=== PATIENT | female | born 1980 | race Caucasian/White ===

== ENCOUNTER 2020-04-09 17:00 | Emergency (ER) | payer MEDICAID, SELFPAY ==
[2020-04-09 18:59] VITALS: BP 103/59; PULSE 79; RESP 16; TEMP 36.3; O2SAT 100; BMI 28.3
--- NOTE | 2020-04-09 19:13 | ED.GENADULT ---
HPI - General Adult General Chief complaint: General Medical <Frankie Rico NP - Last Filed: 04/09/20 19:29> Stated complaint: r side neck pain <Frankie Rico NP - Last Filed: 04/09/20 19:29> Time Seen by Provider: 04/09/20 19:13 <Frankie Rico NP - Last Filed: 04/09/20 19:29> Source: patient <Frankie Rico NP - Last Filed: 04/09/20 19:29> Mode of arrival: ambulatory <Frankie Rico NP - Last Filed: 04/09/20:29> Limitations: no limitations <Frankie Rico NP - Last Filed: 04/09/20 19:29> History of Present Illness HPI narrative: 40-year-old female with history of osteoarthritis, asthma, major depressive disorder, PTSD presenting ambulatory via triage with complaint of right-sided neck pain radiating to right shoulder for the past couple days. aggravating factors include movement and palpation Alleviating factors include rest She denies any fever or chills. No injury. She does report that she bought a new pillow and has been sleeping on that unsure if it is related. <Frankie Rico NP - Last Filed: 04/09/20 19:29> Onset (ago): day(s) <Frankie Rico NP - Last Filed: 04/09/20 19:29> Location: neck and right <Frankie Rico NP - Last Filed: 04/09/20 19:29> Severity: moderate <Frankie Rico NP - Last Filed: 04/09/20 19:29> Severity scale (1-10): 3 <Frankie Rico NP - Last Filed: 04/09/20 19:29> Relieving factors: none and immobilization <Frankie Rico NP - Last Filed: 04/09/20 19:29> Exacerbating factors: movement <Frankie Rico NP - Last Filed: 04/09/20 19:29> Associated symptoms: denies other symptoms <Frankie Rico NP - Last Filed: 04/09/20 19:29> Treatments prior to arrival: none <Frankie Rico NP - Last Filed: 04/09/20 19:29> Related Data Home medications: Previous Rx's Medication Instructions Recorded cyclobenzaprine 5 mg PO BID PRN #14 tab 04/09/20 ibuprofen 800 mg PO Q8H PRN #14 tab 04/09/20 <Frankie Rico NP - Last Filed: 04/09/20 19:29> Allergies/adverse reactions: Allergies Allergy/AdvReac Type Severity Reaction Status Date / Time penicillin V Allergy Unknown Unverified 04/04/19 00:00 Penicillins [PENICILLINS] Allergy Unknown UNKNOWN Unverified 03/20/20 19:40 <Frankie Rico NP - Last Filed: 04/09/20 19:29> Review of Systems Review of Systems: Constitutional: No Weight loss, No Fever, No Chills, No Night Sweats, No Fatigue, No Malaise ENT/Mouth: No Hearing loss, No Ear Pain, No Nasal Congestion, No Sinus Pain, No Hoarseness, No sore throat, No Rhinorrhea, No Swallowing Difficulty Eyes: No Eye Pain, No Swelling, No Redness, No Foreign Body, No Discharge, No Vision Changes Cardiovascular: No Chest Pain, No SOB, No Dyspnea on Exertion, No Orthopnea, No Edema, No Palpitations Respiratory: No Cough, No Sputum, No Wheezing, No Smoke Exposure, No Dyspnea Gastrointestinal: No Nausea, No Vomiting, No Diarrhea, No Constipation, No abdominal Pain, No Hematochezia, No Melena Genitourinary: no irregular bleeding, No Dysuria, No Urinary Frequency, No Hematuria, No Urinary Incontinence, No Urgency, No Flank Pain, No Urinary Flow Changes, No Hesitancy Musculoskeletal: No joint pain, No Myalgias, No Joint Swelling Skin: No Skin Lesions, No rash Neuro: No Weakness, No Numbness, No Paresthesias, No Loss of Consciousness, No Dizziness, No Headache Psych: No Anxiety/Panic, No Depression, No SI/HI/AH/VH, No Social Issues, Heme/Lymph: No Bruising, No Bleeding,No Lymphadenopathy Endocrine: No Polyuria, No Polydipsia, No Temperature Intolerance <XAVI Galeana Last Filed: 04/09/20 19:29> Yes all other systems are reviewed and are negative <XAVI Galeana Last Filed: 04/09/20 19:29> [facility] Past Medical History Attestation statement: The following information was validated with the patient. <Frankie Rico NP - Last Filed: 04/09/20 19:29> Medical History: Medical History (Updated 04/10/20 @ 00:00 by Dot Beverly) Asthma Depression Hypotension <Frankie Rico NP - Last Filed: 04/09/20 19:29> Surgical History: Surgical History (Updated 04/09/20 @ 19:04 by Nesha Pathak) Tubal ligation status <Frankie Rico NP - Last Filed: 04/09/20 19:29> Social History Social History: Social History Advance Directives: No Advance Directives Information Provided: Yes <Frankie Rico NP - Last Filed: 04/09/20 19:29> Physical Exam Vital Signs and I&O and Narrative: Vital Signs and I&O: Vital Signs Temp 97.4 F 04/09/20 18:59 Pulse 79 04/09/20 18:59 Resp 16 04/09/20 18:59 BP 103/59 L 04/09/20 18:59 Pulse Ox 100 04/09/20 18:59 Intake & Output 04/09/20 04/09/20 04/10/20 06:59 18:59 06:59 Weight 68.039 kg Body Mass Index 28.3 <Frankie Rico NP - Last Filed: 04/09/20 19:29> Vital Signs and I&O: Vital Signs Temp 97.4 F 04/09/20 18:59 Pulse 79 04/09/20 18:59 Resp 16 04/09/20 18:59 BP 103/59 L 04/09/20 18:59 Pulse Ox 100 04/09/20 18:59 Intake & Output 04/09/20 04/09/20 04/10/20 06:59 18:59 06:59 Weight 68.039 kg Body Mass Index 28.3 <Tay Bartlett DO - Last Filed: 04/10/20 02:39> Const: General: cooperative and healthy appearing; No acute distress or intoxicated appearing <Frankie Rico NP - Last Filed: 04/09/20 19:29> Nutritional Appearance: average body habitus <Frankie Rico NP - Last Filed: 04/09/20 19:29> Orientation/consciousness: patient oriented x3 <Frankie Rico, [facility] Last Filed: 04/09/20 19:29> HENMT: Head: Yes normal to inspection <[facility] Trisha [facility] Last Filed: 04/09/20 19:29> Ears: hearing grossly normal bilaterally [facility] Last Filed: 04/09/20 19:29> Eyes: General: appearance normal, both eyes and all related structures <[facility] Last Filed: 04/09/20 19:29> Visual Ferreira: normal visual ferreira by confrontation <[facility] Last Filed: 04/09/20:29> Neck: Other: Slight tender palpation over the right cervical spine paraspinal muscle. Negative Spurling test. <[facility] Last Filed: 04/09/20 19:29> Neck: Yes normal visual inspection, Yes full ROM, Yes no lymphadenopathy, No no meningeal signs, Yes trachea midline, Yes supple, No anterior neck swelling, No bilateral parotid enlargement, No lymphadenopathy, No midline deformity, No positive Brudzinski's sign, No positive Kernig's sign, No tender and No no JVD <[facility] Last Filed: 04/09/20 19:29> Thyroid: Thyroid normal <[facility] Last Filed: 04/09/20 19:29> Chest: Chest palpation & inspection: normal inspection of the chest <[facility] Last Filed: 04/09/20 19:29> Resp: Effort & Inspection: normal respiratory effort <[facility] Last Filed: 04/09/20 19:29> Cardio: Jugular venous distension: no JVD <[facility] Last Filed: 04/09/20 19:29> : General: Yes no CVA tenderness <[facility] Last Filed: 04/09/20 19:29> Back/Spine/Pelvis: Back: no CVA tenderness <[facility] Last Filed: 04/09/20 19:29> Skin: General skin exam: no rashes or lesions noted <[facility] Last Filed: 04/09/20 19:29> Neuro: General: patient oriented x3 and No no meningeal signs <Frankie Rico NP - Last Filed: 04/09/20 19:29> Extrem: General: Yes normal to inspection <Frankie Rico NP - Last Filed: 04/09/20 19:29> Medical Decision Making Differential Diagnosis Differential Diagnosis: torticollis, cervical strain, radiculopathy, fracture/ infectious less <Frankie Rico NP - Last Filed: 04/09/20 19:29> Discharge Plan Discharge Clinical Impression: Acute torticollis <Frankie Rico NP - Last Filed: 04/09/20 19:29> Patient Disposition: Home, Self-Care <Frankie Rico NP - Last Filed: 04/09/20 19:29> Instructions: Spasmodic Torticollis (ED) <Frankie Rico NP - Last Filed: 04/09/20 19:29> Additional Instructions: gentle stretching, warm compresses, supportive cares reviewed Take medication as prescribed Return if any concerns or worsening symptoms otherwise follow up as instructed Thank you <Frankie Rico NP - Last Filed: 04/09/20 19:29> Prescriptions: New cyclobenzaprine 5 mg tablet 5 mg PO BID PRN (Reason: muscle spasm) Qty: 14 RF: 0 ibuprofen 800 mg tablet 800 mg PO Q8H PRN (Reason: pain) Qty: 14 RF: 0 <Frankie Rico NP - Last Filed: 04/09/20 19:29> Interventions: ED Discharge Assessment Last Done: 04/09/20 19:56 <Frankie Rico NP - Last Filed: 04/09/20 19:29> Discharge Date/Time: 04/09/20 20:02 <Frankie Rico NP - Last Filed: 04/09/20 19:29>
== END 2020-04-09 20:02 | disposition home or self-care (01) ==
PROVIDERS: Emergency Provider Emergency Medicine; PCP Internal Medicine
DX: M43.6 Torticollis (principal)
CPT/HCPCS: 99283; 99284

== ENCOUNTER 2020-07-26 15:26 | Emergency (ER) | payer MEDICAID, SELFPAY ==
[2020-07-26 16:14] VITALS: BP 116/78; PULSE 107; RESP 18; TEMP 36.6; O2SAT 98; BMI 33.2
[2020-07-26 16:41] LABS: Glucose Urine UA NEG (NEG); Leukocyte Esterase Urine NEG (NEG); Nitrite Urine NEG (NEG); Urine Blood NEG (NEG); Urine Ketones NEG (NEG); Urine Protein NEG (NEG-TRACE)
[2020-07-26 16:43] LABS: Appearance Urine CLEAR; Color Urine YELLOW
[2020-07-26 16:44] LABS: UPreg QC Valid YES; Urine Pregnancy NEGATIVE (NEGATIVE)
--- NOTE | 2020-07-26 18:58 | CT_ITS ---
EXAMINATION: CT ABDOMEN AND PELVIS WITH CONTRAST CLINICAL INFORMATION: Right lower quadrant pain and tenderness COMPARISON: Pelvic ultrasound 11/12/2019, CT abdomen pelvis 09/16/2019 TECHNIQUE: Multidetector volumetric images were obtained from the superior aspect of the liver through the pubic symphysis following administration 85 mL of Omnipaque 350 intravenous contrast. Sagittal and coronal reformatted images were obtained on the technologist's workstation. Oral contrast: No This CT examination was performed using dose optimization techniques as appropriate, variously including the following: *Automated exposure control *Adjustment of mA and/or kV according to patient size (this includes techniques or standardized protocols for targeted exams where dose is matched to indication/reason for exam; i.e. extremities or head) *Use of iterative reconstruction technique DLP: 641 mGy-cm FINDINGS: LUNG BASES: The visualized lung bases are unremarkable. LIVER, GALLBLADDER, AND BILIARY TREE: The liver is normal in size, shape, and attenuation at least 2 calcified granulomas are present in the liver. No worrisome focal hepatic lesion or biliary ductal dilatation is present. The gallbladder is contracted but otherwise unremarkable with no evidence of radiopaque gallstones, gallbladder wall thickening, or obvious pericholecystic inflammatory changes. PANCREAS: Unremarkable. SPLEEN: Unremarkable. ADRENAL GLANDS: Unremarkable. KIDNEYS AND URETERS: The kidneys are normal in size, shape, and attenuation. Tiny hypodensity seen in the left kidney is a cystic lesion consistent with cyst, unchanged when compared to the 09/16/2019 CT. No hydronephrosis, hydroureter, or calculi seen. No perinephric stranding. BLADDER: Unremarkable. GASTROINTESTINAL TRACT: The small and large bowel are unremarkable. The appendix is unremarkable. ABDOMINAL WALL: No significant hernia is appreciated. LYMPH NODES: Normal. VASCULAR: Unremarkable. PELVIC VISCERA: The ovaries are midline behind the bladder. Cysts seen previously are not present. OSSEOUS STRUCTURES: There is mild biconvex scoliosis present. No bony destructive lesions. CT/CT abdomen pelvis w con IMPRESSION: No significant abnormality.
--- NOTE | 2020-07-26 19:00 | ED.GENADULT ---
HPI - General Adult General Chief complaint: Dizziness Stated complaint: nausea, dizziness Time Seen by Provider: 07/26/20 17:03 Source: patient Mode of arrival: ambulatory Limitations: language barrier (Patient speaks Slovak only, cementer oil well used to obtain information) History of Present Illness HPI narrative: 40-year-old female who presents emergency department for evaluation of abdominal pain, nausea and dizziness. Patient states that she developed gradual onset of right sided abdominal pain this morning that got progressively worse. She describes the pain as a constant, pulsing pain which waxes and wanes in intensity and is currently 8/10. She had associated nausea, loss of appetite but no vomiting. She denied frequency, urgency or dysuria. She states that this is her 1st episode of this type of pain. She did not take any medications at home for the pain. Her last menstrual period was May 2020 but she states that her menstrual periods are irregular and she does not believe that she is . She also states that she is feeling dizzy and lightheaded. Related Data Previous Rx's Medication Instructions Recorded cyclobenzaprine 5 mg PO BID PRN #14 tab 04/09/20 ibuprofen 800 mg PO Q8H PRN #14 tab 04/09/20 Allergies Allergy/AdvReac Type Severity Reaction Status Date / Time penicillin V Allergy Unknown Rash Verified 07/26/20 19:27 Penicillins [PENICILLINS] Allergy Unknown Itching Verified 07/26/20 19:27 Review of Systems Review of Systems: Yes all other systems are reviewed and are negative Neurologic: Reports Abnormal speech present [facility] Past Medical History [facility] Narrative: Patient has a history hypotension, asthma and depression. She denies alcohol and drug use. She does smoke cigarettes daily. Medical History (Updated 07/26/20 @ 21:57 by Yaya Gallardo MD) Asthma Depression Hypotension Surgical History (Updated 04/09/20 @ 19:04 by Nesha Pathak) Tubal ligation status Social History Social History Smoking Status: Current every day smoker Use of substances other than those prescribed or required for medical reasons: No Advance Directives: No Advance Directives Information Provided: Yes Physical Exam Vital Signs: Vital Signs: Last Vital Signs Temp 98.9 F 07/26/20 21:47 Pulse 88 07/26/20 21:47 Resp 18 07/26/20 21:47 BP 129/88 07/26/20 21:47 Pulse Ox 99 07/26/20 21:47 Body Mass Index 33.2 Const: General: cooperative and healthy appearing Orientation/consciousness: oriented to person and oriented to place Limitations: no limitations HENMT: Head: Yes normal to inspection, Yes normocephalic and Yes atraumatic Ears: external ears normal General nose exam: Normal external nose present Face and sinus: Yes normal facial exam Mouth: Normal oral and palatal mucosa present Throat: Yes posterior oropharynx normal Eyes: Periorbital: periorbital findings normal Eyelids: Yes eyelids normal Conjunctivae: conjunctivae normal Sclerae: sclerae normal Corneas: corneas normal Pupils: Equal, round and reactive pupils present Direct Ophthalmoscopy: normal light reflex Neck: Neck: Yes full ROM, Yes no lymphadenopathy, Yes no meningeal signs, Yes trachea midline and Yes supple Chest: Chest palpation & inspection: normal inspection of the chest and normal palpation of entire chest wall Resp: Effort & Inspection: normal respiratory effort and able to speak in complete sentences Auscultation: clear to auscultation bilaterally Cardio: Rate: regular rate Rhythm: regular rhythm Heart sounds: S1 normal heart sound present, S2 normal heart sound present and no murmurs GI: Inspection: Yes normal to inspection Palpation (GI): Soft to palpation, Tenderness to palpation present (GI) in the RLQ and other (Moderate tenderness); psoas sign negative and with no rebound tenderness, no guarding, not rigid and No hepatosplenomegaly present : General: Yes no CVA tenderness Back/Spine/Pelvis: Back: no CVA tenderness Cervical Spine: normal cervical lordosis Thoracic/Lumbar Spine: thoracic and lumbar spine normal to inspection Skin: Lesions: no lesions Rashes: no rashes Wounds: no wounds Neuro: General: oriented to person, oriented to place and no meningeal signs Cranial nerves: Yes CN's II-XII intact bilaterally and Yes Equal, round and reactive pupils present Cognition (Neuro): normal cognition Speech: Abnormal speech present Motor exam (neuro): 5/5 motor strength present throughout Extrem: General: Yes normal to inspection and Yes full ROM Psych: Appearance: well kempt Mental Status: mental status grossly normal Speech and movement: Normal speech and movement present Affect: normal affect Attitude: cooperative Thought process: Normal thought process present Thought content: Normal thought content present Course Course Course Narrative: 40-year-old female who presents emergency department for evaluation of right lower quadrant pain which began earlier today, the pain is constant but waxes and wanes in intensity, she has associated nausea with no vomiting, exam did reveal right lower quadrant tenderness. I did order laboratory workup on this patient and CT scan of the abdomen pelvis with IV contrast to rule out appendicitis, diverticulitis, pancreatitis. Patient was ordered a normal saline IV x1 L, Toradol 30 mg IV for pain and Zofran 4 mg IV for her nausea. 2154: The patient's laboratory evaluation was unremarkable. Urinalysis and urine test were negative. CT scan of the abdomen pelvis did not reveal a clear cause for the patient's pain. I did discuss this with the patient. The patient did get improvement with the above treatment. The patient was discharged home advised to take ibuprofen Tylenol for pain, she was given verbal and printed instructions on abdominal pain and advised to return if her symptoms get worse or stools any symptoms that are concerning to her. Medical Decision Making Lab Data Result diagrams: 07/26/20 19:40 07/26/20 19:39 Labs: Lab Results 07/26/20 07/26/20 07/26/20 Range/Units 16:24 19:39 19:40 WBC 11.1 H (4.8-10.8) X10*3/uL RBC 4.35 (4.20-5.50) X10*6/uL Hgb 11.8 L (12.0-16.0) g/dl Hct 36.5 L (37-47) % MCV 83.9 (80-98) fL MCH 27.1 (27.0-33.0) pg MCHC 32.3 (31.0-35.0) g/dl RDW 15.7 (11.0-16.0) % Plt Count 310 (160-400) X10*3/uL MPV 10.1 (9.4-12.3) fL Immature Gran % (Auto) 0.5 H (0.0-0.4) % Neut % (Auto) 74.4 H (45-73) % Lymph % (Auto) 18.9 L (20-40) % White % (Auto) 5.3 (2-11) % Eos % (Auto) 0.4 (0-4) % Baso % (Auto) 0.5 (0-2) % Lymph # (Auto) 2.1 (1.2-4.9) X10*3/uL White # (Auto) 0.6 (0.1-1.2) X10*3/uL Eos # (Auto) 0.0 (0.0-0.4) X10*3/uL Baso # (Auto) 0.1 (0.0-0.2) X10*3/uL Abs Immat Gran (auto) 0.05 H (0.00-0.03) X10*3/uL Absolute Neuts (auto) 8.2 (2.0-8.3) X10*3/uL Absolute Nucleated RBC 0.000 (0.0-0.012) X10*3/uL Nucleated RBC % (auto) 0.0 (0.0-0.2) /100WBC Sodium 138 (135-145) mmol/L Potassium 3.8 (3.3-5.1) mmol/l Chloride 105 (96-108) mmol/L Carbon Dioxide 26 (22-29) mmol/L Anion Gap 11 L (12-20) BUN 6 L (9-16) mg/dL Creatinine 0.71 (0.5-1.4) mg/dL Estim Creat Clear Calc 99.7 Estimated GFR > 60 Random Glucose 81 (60-115) mg/dL Calcium 8.4 (8.4-10.2) mg/dL Total Bilirubin 0.3 (0.0-1.0) mg/dL AST 17 (5-31) U/L ALT 23 (0-31) U/L Alkaline Phosphatase 100 (39-117) U/L Total Protein 6.6 (6.5-8.0) g/dL Albumin 4.0 (3.5-5.0) g/dL Lipase 15 (8-78) U/L Urine Color YELLOW Urine Appearance CLEAR Urine pH 7.0 (5.0-8.0) Ur Specific [place] 1.010 (1.005-1.025) Urine Protein NEG (NEG-TRACE) MG/DL Urine Glucose (UA) NEG (NEG) MG/DL Urine Ketones NEG (NEG) MG/DL Urine Blood NEG (NEG) Urine Nitrite NEG (NEG) Ur Leukocyte Esterase NEG (NEG) Urine Test NEGATIVE (NEGATIVE) Discharge Plan Discharge Clinical Impression: Abdominal pain Qualifiers: Abdominal location: right lower quadrant Qualified Code(s): R10.31 - Right lower quadrant pain Patient Disposition: Home, Self-Care Instructions: Abdominal Pain (ED) Additional Instructions: Your laboratory evaluation was unremarkable. Your CT scan of your abdomen pelvis did not find any clear causes for your pain, this is reassuring. Take ibuprofen 200 mg pills, 3 pills every 6 hours as needed for pain. Take Tylenol (acetaminophen) 500 mg pills, 2 pills every 4 to 6 hours as needed for pain. Follow-up with your doctor in 2 days. Please return to the emergency department if your symptoms get worse or if you develop any symptoms that are concerning to you. Prescriptions: No Action cyclobenzaprine 5 mg tablet 5 mg PO BID PRN (Reason: muscle spasm) Qty: 14 RF: 0 ibuprofen 800 mg tablet 800 mg PO Q8H PRN (Reason: pain) Qty: 14 RF: 0
[2020-07-26 19:16] VITALS: BP 111/71; PULSE 86; RESP 15; O2SAT 100
[2020-07-26] MEDS: 0.9 % Sodium Chloride 1,000 ML 999 ML IV (19:29)
[2020-07-26] MEDS: Ketorolac Tromethamine 30 MG/ML VIAL IVPUSH (19:29)
[2020-07-26 19:43] LABS: MANUAL DIFF FLAG NO
[2020-07-26 20:01] LABS: Basophils Absolute Auto 0.1 X10*3/uL (0.0-0.2); Basophils Percent Auto 0.5 % (0-2); Eosinophils Percent Auto 0.4 % (0-4); Hematocrit 36.5 % (37-47); Hemoglobin 11.8 g/dl (12.0-16.0); Imm Gran Abs Auto 0.05 X10*3/uL (0.00-0.03); Imm Gran Pct Auto 0.5 % (0.0-0.4); Lymphocytes Absolute Auto 2.1 X10*3/uL (1.2-4.9); Lymphocytes Percent Auto 18.9 % (20-40); Mean Corpuscular HGB Conc 32.3 g/dl (31.0-35.0); Mean Corpuscular Hemoglobin 27.1 pg (27.0-33.0); Mean Corpuscular Volume 83.9 fL (80-98); Mean Platelet Volume 10.1 fL (9.4-12.3); Monocytes Absolute Auto 0.6 X10*3/uL (0.1-1.2); Monocytes Percent Auto 5.3 % (2-11); Neutrophils Absolute Auto 8.2 X10*3/uL (2.0-8.3); Neutrophils Percent Auto 74.4 % (45-73); Platelet Count 310 X10*3/uL (160-400); Red Blood Count 4.35 X10*6/uL (4.20-5.50); Red Cell Distribution Width 15.7 % (11.0-16.0); White Blood Count 11.1 X10*3/uL (4.8-10.8)
[2020-07-26 20:04] LABS: Alanine Aminotransferase 23 U/L (0-31); Alkaline Phosphatase 100 U/L (39-117); Anion Gap 11 (12-20); Aspartate Amino Transferase 17 U/L (5-31); Bilirubin Total 0.3 mg/dL (0.0-1.0); Blood Urea Nitrogen 6 mg/dL (9-16); Calcium 8.4 mg/dL (8.4-10.2); Carbon Dioxide 26 mmol/L (22-29); Chloride 105 mmol/L (96-108); Creatinine Clr Calc Pharmacy 99.7; Estimated Glomerular Filt Rate > 60; Glucose Random 81 mg/dL (60-115); Lipase 15 U/L (8-78); Potassium 3.8 mmol/l (3.3-5.1); Sodium 138 mmol/L (135-145); Total Protein 6.6 g/dL (6.5-8.0)
[2020-07-26] MEDS: iohexoL 350 MG/ML 100 ML INFUS..BTL IV (20:57)
[2020-07-26 21:47] VITALS: BP 129/88; PULSE 88; RESP 18; TEMP 37.2; O2SAT 99
== END 2020-07-26 22:09 | disposition home or self-care (01) ==
PROVIDERS: Internal Medicine; Emergency Provider Emergency Medicine Emergency Medical Services; PCP Internal Medicine
DX: R10.31 Right lower quadrant pain (principal); R42 Dizziness and giddiness; F17.200 Nicotine dependence, unspecified, uncomplicated; Z71.6 Tobacco abuse counseling; Z79.899 Other long term (current) drug therapy
CPT/HCPCS: 36415; 74177; 80053; 81003; 81025; 83690; 85025; 96361; 96374; 99284; 99285; J1885; Q9967